=== PATIENT | male | born 1945 | race Caucasian/White ===

== ENCOUNTER → 2017-08-13 | Outpatient (CLI) | payer MEDICARE, BC ==
[~2017-08-13] MED LIST: ACET1CAP18 PO; ALLO300T2 PO; ATOR10TA15 PO; GABA300C5 PO; HYDR25TA5 PO; RYTH225C PO; TOPR25TA PO; WARF-60 PO
[2017-08-13 14:52] LABS: CHOLESTEROL/ HDL RATIO 2.47 RATIO
== END ==
LOC: CLAB 13:57
PROVIDERS: ATTEND Internal Medicine Interventional Cardiology
DX: R00.2 Palpitations (principal); I25.9 Chronic ischemic heart disease, unspecified; Z79.01 Long term (current) use of anticoagulants
CPT/HCPCS: 36415; 80061; 84450; 84460